=== PATIENT | female | born 1985 | race Caucasian/White ===

== ENCOUNTER 2016-09-23 22:36 | Emergency (ER) | payer SELFPAY ==
[~2016-09-23] VITALS: Ht 175 cm; Wt 64.0 kg
--- NOTE | 2016-09-23 23:00 | ED INFLUENZA/URI COMPLAINT ---
History of Present Illness General Chief Complaint: Upper Respiratory Sx/Fever Stated Complaint: UPPER RESP SYMPTOMS Source: patient, old records Exam Limitations: no limitations Vital Signs & Intake/Output Vital Signs & Intake/Output Vital Signs Date Time Temp Pulse Resp B/P Pulse O2 O2 Flow FiO2 Ox Delivery Rate 09/23 2310 98.3 84 18 115/74 100 Room Air 09/23 2300 Room Air 09/23 2240 97.1 92 24 140/92 100 Room Air ED Intake and Output 09/24 0000 09/23 1200 Intake Total 0 Output Total Balance 0 Intake, Oral 0 Patient 141 lb Weight Allergies Coded Allergies: No Known Allergies (09/23/16) Reconcile Medications Azithromycin (Zithromax) 250 MG TABLET 1 DP PO AD BRONCHITIS 2 the first day followed by 1 for days 2-5 Azithromycin (Zithromax) 250 MG TABLET 1 DP PO AD BRONCHITIS 2 the first day followed by 1 for days 2-5 Robitussin AC (Guaifenesin-Codeine Syrup) 200 MG-20 MG/10 ML LIQUID 10 ML PO Q6HR PRN COUGH Triage Note: TRIAGE: PT TO ER C/C PRODUCTIVE COUGH WITH CLEAR PHLEGM REPORTED. STATES HAS HAD COLD X 2 WEEKS AND NOW WITH COUGH X 4 DAYS. CAN'T STOP COUGHING, "FEELS LIKE SOMETHING IS STUCK IN MY THROAT AND I CAN'T GET IT OUT". PT STATES SHE IS ABLE TO DRINK FLUIDS. Triage Nurses Notes Reviewed? yes Onset: Gradual Duration: week(s): (2), constant Timing: recent history Severity: moderate Severity Numbers: 7 No Modifying Factors: none Associated Symptoms: cough, nasal congestion, nasal drainage : No Patient currently breastfeeds: No HPI: 30-year-old female with no medical history presents to emergency room complaining of a productive cough of clear sputum associated rhinorrhea and congestion generalized bodyaches for the past 2 weeks after she flew in from [place]. She denies any shortness of breath no history of asthma COPD she does not smoke. She denies any shortness of breath chest pain, abdominal pain nausea vomiting or diarrhea no sore throat no rashes or skin no ear pain. No modifying factors or associated symptoms (DULCE CLAYTON,MARK) Past History Travel History Traveled to [place] past 21 day No Medical History Any Pertinent Medical History? none Neurological: NONE EENT: NONE Cardiovascular: NONE Respiratory: NONE Gastrointestinal: NONE Hepatic: NONE Renal: NONE Musculoskeletal: NONE Psychiatric: NONE Endocrine: NONE Blood Disorders: NONE Cancer(s): NONE SANDWICH MAKER/Reproductive: NONE Surgical History Surgical History: none Psychosocial History What is your primary language Chinese Tobacco Use: Quit >30 days ago ETOH Use: occasional use Illicit Drug Use: denies illicit drug use Family History Hx Contributory? No (MARK BYRNE) Review of Systems Review of Systems Constitutional: Reports: see HPI. All Other Systems: Reviewed and Negative Comments Review of systems: See HPI, All other systems negative. Constitutional, no chills no fever, no malaise HEENT: No visual changes no sore throat congestion, no ear pain Cardiovascular: No chest pain , no palpitation Skin: no rashes, no change in skin Respiratory: No dyspnea cough sputum GI: No nausea no vomiting, no diarrhea, : No dysuria No hematuria, Muscle skeletal: No joint pain, no joint swelling, no back pain, no neck pain, Neurologic: No numbness no confusion, no headache Psych: No stress Heme/endocrine: No bruising no bleeding Immunology: No lymphadenopathy (MARK BYRNE) Physical Exam Physical Exam General Appearance: well developed/nourished, no apparent distress, alert Ears, Nose, Throat: normal ENT inspection Comments: Well-developed well-nourished patient in no apparent distress. Head/Face: Atraumatic, no maxillary/frontal sinus tenderness, no facial swelling Eyes: PERRL, EOMI, no conjunctival injection Ear:External auditory canal and Tympanic membranes clear, no erythema, no FB. Nose: atraumatic.Normal inspection, RHINORRHEA Throat: Moist mucous membranes.Pharynx normal. No pharyngeal erythema/exudate seen. No stridor/drooling or assymetry. No swelling or edema. Neck: Supple, no lymphadenopathy, FROM Back: FROM, Nontender Cardiovascular: Regular rate and rhythms no murmurs rubs or gallops, Respiratory: Chest nontender.There were no bony deformities, no asymmetry. No respiratory distress. Patient speaking in full complete sentences. Breath sounds clear to auscultation bilaterally: NO W/R/R Extremities: full range of motion Neuro: Alert and oriented x3 Skin: Warm & dry;No appreciable rash on exposed skin Psych: Mood affect normal, normal memory normal judgment. Core Measures Severe Sepsis Present: No Septic Shock Present: No (MARK BYRNE) Progress Differential Diagnosis: influenza, otitis, pneumonia, pharyngitis, sinusitis, BRONCHITIS Plan of Care: Current Medications Sig/Roverto Start time Last Medication Dose Stop Time Status Admin Guaifenesin/Codeine 10 ML ONCE ONE 09/23 2314 UNVr Phosphate 09/23 2315 (Robitussin AC) Patient clinically appears well lungs are clear to auscultation speaking in full complete sentences discussed with her her symptoms and plan of care Robitussin with codeine, Z-Shawn provided. need for close follow up with their primary care physician. This week. I answered all of their questions, they feel comfortable with the plan and follow- up care. I discussed the medications that they will receive with the patient. I gave them signs and symptoms that could indicate an adverse reaction. I have advised them to limit their activities until they can see how they respond to the medication. (MARK BYRNE) Initial ED EKG: none (MARK BYRNE) Departure Departure Time of Disposition: 2304 Disposition: HOME OR SELF CARE Condition: Stable Clinical Impression Primary Impression: Bronchitis Referrals: PATIENT HAS NO PRIMARY CARE DR (PCP/Family) Additional Instructions: Robitussin with codeine for cough use caution as this may make you drowsy. Z- Shawn as directed these prescriptions were sent to your pharmacy. Use over-the- counter Mucinex, drink plenty of fluids return with any concerns Departure Forms: Customer Survey General Discharge Information Prescriptions: Current Visit Scripts Azithromycin (Zithromax) 1 DP PO AD #6 TAB 2 the first day followed by 1 for days 2-5 Robitussin AC (Guaifenesin-Codeine Syrup) 10 ML PO Q6HR PRN COUGH #200 ML Azithromycin (Zithromax) 1 DP PO AD #6 TAB 2 the first day followed by 1 for days 2-5 (MARK BYRNE) PA/APPRENTICE ELECTRICIAN Co-Sign Statement Statement: ED Attending supervision documentation- [] I saw and evaluated the patient. I have also reviewed all the pertinent lab results and diagnostic results. I agree with the findings and the plan of care as documented in the PA's/APPRENTICE ELECTRICIAN's documentation. [x] I have reviewed the ED Record and agree with the PA's/APPRENTICE ELECTRICIAN's documentation. [] Additions or exceptions (if any) to the PAs/APPRENTICE ELECTRICIAN's note and plan are summarized below: [] (JAZIEL ALEXANDRA,DAVID Chavez)
[2016-09-23] MEDS ORDERED: GUAIFENESIN-COD10 ML PO ×3 (23:06→23:09)
[2016-09-23] MEDS ORDERED: ZITHROMAX250 M2 PO ×2 (23:06→23:09)
[2016-09-23 23:10] VITALS: BP 115/74
== END 2016-09-23 23:11 ==
LOC: ERH 22:36
DX: J40 Bronchitis, not specified as acute or chronic (principal); Z87.891 Personal history of nicotine dependence